=== PATIENT | male | born 2000 ===

== ENCOUNTER 2021-10-01 22:20 | Emergency (ER) | payer OTHER ==
[~2021-10-01] VITALS: Ht 180.3 cm; Wt 79.5 kg
[2021-10-01 22:46] VITALS: BP 110/72
== END 2021-10-01 23:15 | disposition left against medical advice (07) ==
LOC: EMS 22:23
DX: Z53.21 Procedure and treatment not carried out due to patient leaving prior to being seen by health care provider (principal)